=== PATIENT | male | born 1965 | race Caucasian/White ===

== ENCOUNTER 2017-01-04 17:42 | Emergency (ER) | payer OTHER ==
--- NOTE | ~2017-01-04 | CR173 ---
[facility]. [facility] A Service of [facility] & [facility] RADIOLOGY TEXT RESULTS PATIENT: AHSAN JUAREZ LOCATION: SED : 63 UNIT #: [id number] AGE: [address]: EDUARDA FORD SEX: M ORDER DR: [id number] [place] [id number] E MR#: [id number] Acc #: [id number] NAME: AHSAN JUAREZ : 1965 SEX: M STUDY DATE/TIME: 01/04/2017 19:04 UNIT: SED ROOM: STUDY DESCRIPTION: CR Knee 3 Views Rt Attending Physician: Eduarda Ford A.P.R.N. Ordering Physician: Dennys Ford Primary Care Physician: Fidel Wallace M.D. MEDICAL IMAGING REPORT This report is preliminary unless electronic signature is present. EXAM Right knee, 3 views 01/04/2017 HISTORY Pain for 2 days. FINDINGS AP and lateral projection of the knee shows smooth articular anatomy without indication of fracture or dislocation at the major weight-bearing surface of the knee. There is no indication of radiopaque foreign body about the knee surface or joint effusion. IMPRESSION Normal knee. Dictated by... Yonis Cage M.D. THIS IS AN ELECTRONICALLY VERIFIED REPORT Yonis Cage M.D. at 01/14/2017 4:01 PM PIERCE/kirsten TD: 01/05/2017 03:47 JOB #: [id number] MEDICAL IMAGING REPORT Page 1 of 1
[~2017-01-04 17:42] MED LIST: ZYRTEC10 M2 PO
[2017-01-04] MEDS ORDERED: METOPROLOL PO (17:47)
[2017-01-04] MEDS ORDERED: ZYRTEC PO (17:47)
[2017-01-04] MEDS ORDERED: ATORVASTATIN PO (17:48)
[2017-01-04] MEDS ORDERED: RANEXA PO (17:48)
[2017-01-04] MEDS ORDERED: ASPIRIN PO (17:48)
== END 2017-01-04 19:35 | disposition home or self-care (01) ==
LOC: SED 17:42
DX: S83.91XA Sprain of unspecified site of right knee, initial encounter (principal); X58.XXXA Exposure to other specified factors, initial encounter
CPT/HCPCS: 73562